=== PATIENT | female | born 1975 | race Caucasian/White ===

== ENCOUNTER 2017-02-19 16:09 | Emergency (ER) | payer BC, OTHER ==
[2017-02-19 16:16] VITALS: RESP 16
[2017-02-19] MEDS ORDERED: IBUPROFEN 600 MG TAB PO ONE (16:21)
[2017-02-19] MEDS ORDERED: HYDROmorphONE/DILAUDID 1 MG/ML SYR IVP ONE ×2 (17:20→18:04)
--- NOTE | 2017-02-19 17:55 | EDPHY ---
H & P Time Seen by Provider: 02/19/17 17:04 HPI/ROS: This patient injured her wrist while walking her dog shortly prior to arrival. She explains that she was walking her Labrador and was distracted by putting a bag in the trash when the dog abruptly jerked on the leash causing her to fall with FOOSH mechanism to the right wrist. She complains of severe 8/10 right wrist pain with deformity and mild elbow pain to the lateral elbow. She has no other associated symptoms except for some waves of pain up the forearm from the wrist. She did not take any medications prior to arrival. She received ibuprofen orally shortly after arrival here from our nurse. ROS: No constitutional symptoms HEENT: No complaints or injuries. Musculoskeletal: No other extremity injuries neuro: No focal weakness. Mild tingling at the side ice pack that she attributes that ice. No other neuro symptoms. Past Medical/Surgical History: Hypothyroid Smoking Status: Former smoker Physical Exam: Physical Exam Vital signs are normal. General: No acute distress HEENT: Atraumatic. Eyes: Pupils equal and react to light. Extraocular motions are intact. Lungs: No respiratory distress. Cardiac: Brisk capillary refill is intact throughout. Pulses are 2+ and symmetric in the affected extremity. Extremities: Atraumatic normal except for right wrist Right wrist: Patient has dinner fork deformity with exquisite tenderness to the distal radius she also has ulnar styloid tenderness. He has minimal tenderness to the radial aspect of the elbow on the right side. She retains full range of motion of the elbow without significant change in pain. Skin: No rash or pallor. Neuro: Alert and oriented with no sensorimotor deficits in the affected extremity. Initial differential diagnosis: Wrist fracture, wrist dislocation, elbow contusion, elbow sprain, elbow fracture Constitutional: Initial Vital Signs Temperature (C) 36.8 C 02/19/17 16:12 Heart Rate 72 02/19/17 16:12 Respiratory Rate 16 02/19/17 16:12 Blood Pressure 116/82 H 02/19/17 16:12 O2 Sat (%) 97 02/19/17 16:12 O2 Delivery Mode Room Air Allergies/Adverse Reactions: Penicillins Allergy (Verified 06/14/11 12:49) Fever Home Medications: Medication Instructions Recorded Levothyroxine 02/19/17 Paxil 02/19/17 oxyCODONE/APAP 5/325 [Percocet 1 - 2 tab PO Q4-6PRN PRN #15 tab 02/19/17 5/325 (*)] MDM/Departure - MDM Diagnostics: Wrist x-ray: Comminuted Colle/s fracture with interposed bone fragment just distal to the carpal row. Associated ulnar styloid fracture . This study was read by radiologist also reviewed the film. Elbow x-ray: Negative for fracture -read by radiologist also reviewed by myself. Imaging Results: Imaging Impressions Elbow X-Ray 02/19/17 16:22 Impression: No acute osseous findings. Wrist X-Ray 02/19/17 16:22 Impression: 1. Moderately comminuted intra-articular fracture of the distal radial metaphysis with dorsal angulation and displacement. 2. Fracture fragment overlying the proximal carpal row on the lateral, possibly related to a displaced ulnar styloid fracture. 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 He confirms need for surgical treatment of this fracture. He suggest holding on reduction at this time and simply splinting in place. Patient was treated with ibuprofen after triaged by the nurse. IV is placed she is treated with Dilaudid total 0.6 mg with good relief from 8/ 10 down to 2 3/10. Patient is placed in a modified sugar-tong splint by our tamera Linton with my supervision is neurovascularly intact post splint application. Discussion: Patient with surgical wrist fracture but neurovascularly intact and comfortable after analgesia with plan to follow up with Dr. Wong- orthopedics in the morning at 8 a.m. in his office - Depart Disposition: Home, Routine, Self-Care Clinical Impression: Closed fracture distal radius and ulna Qualifiers: Encounter type: initial encounter Laterality: right Qualified Code(s): S52.501A - Unspecified fracture of the lower end of right radius, initial encounter for closed fracture Condition: Good Instructions: Wrist Fracture in Adults (ED) Additional Instructions: Diagnosis: Comminuted distal radius fracture and ulnar styloid fracture Plan: Keep the splint on at all times Elevate the wrist whenever possible Percocet for pain control as needed In addition to the Percocet - you can take 1 or 2 Tylenol for total Tylenol dose of 1 g per 4 hours while awake. No driving, alcohol or come Percocet Take a stool softener while on this medication to prevent constipation. Go to Dr. Wong's office at 8:00 a.m. in the morning for further evaluation and planning for surgery. Prescriptions: oxyCODONE/APAP 5/325 [Percocet 5/325 (*)] 1 - 2 tab PO Q4-6PRN PRN #15 tab PRN Reason: Pain Referrals: NONE *PRIMARY CARE P,. [Primary Care Provider] - As per Instructions Terrence Wong MD [Medical Doctor] - As per Instructions
[2017-02-19 19:16] VITALS: BP 123/80; PULSE 70; TEMP 99.1; O2SAT 95
== END 2017-02-19 18:50 | disposition home or self-care (01) ==
LOC: CED 16:09
DX: S52.571A Other intraarticular fracture of lower end of right radius, initial encounter for closed fracture (principal); S52.201A Unspecified fracture of shaft of right ulna, initial encounter for closed fracture; Z87.891 Personal history of nicotine dependence; W19.XXXA Unspecified fall, initial encounter; Y99.8 Other external cause status; Y93.K1 Activity, walking an animal
CPT/HCPCS: 73080-PO; 73110-PO; 96374; A4565; J1170; L3908